=== PATIENT | male | born 1940 | race Hispanic/Latino ===

== ENCOUNTER 2020-02-11 14:07 | Inpatient (IN) | payer SELFPAY ==
[~2020-02-11 14:07] MED LIST: Iopamidol-370 76% 500 ML 1 ML ONE
[2020-02-11] MEDS ORDERED: Acetaminophen 500 MG TAB ONE (14:36)
[2020-02-11 15:05] LABS: #Lymphocytes 1.8 thou/uL (1.20-3.40); #Neutrophils 4.1 thou/uL (1.40-6.50); %Basophils 0.6 % (0.0-1.0); %Eosinophils 0.1 % (0.0-10.0); %Lymphocytes 25.6 % (21.0-51.0); %Monocytes 13.8 % (0.0-10.0); Hemoglobin 14.6 g/dL (14.0-18.0); Mean Corpuscular HGB CONC 33.6 g/dL (32.0-36.0); Mean Corpuscular Hemoglobin 32.4 pg (27.0-31.0); Mean Corpuscular Volume 96.5 fL (78.0-98.0); Mean Platelet Volume 8.9 fL (7.4-10.4); Platelet Count 132 thou/uL (130-400); Red Blood Cell (RBC) Count 4.51 mill/uL (4.70-6.10); White Blood Cell (WBC) Count 6.9 thou/uL (4.8-10.8)
[2020-02-11 15:29] LABS: ALT (SGPT) 13 U/L (8-55); AST (SGOT) 35 U/L (5-34); Albumin 3.9 g/dL (3.4-4.8); Alkaline Phosphatase 67 U/L (40-110); Anion Gap 14 mmol/L (10-20); BUN (Urea Nitrogen) 17 mg/dL (8.4-25.7); Bilirubin, Total 0.6 mg/dL (0.2-1.2); Calc. Creatinine Clearance 0 mL/min (70-130); Calcium 8.9 mg/dL (7.8-10.44); Carbon Dioxide 26 mmol/L (23-31); Chloride 100 mmol/L (98-107); Globulin 4.1 g/dL (2.4-3.5); Glucose 99 mg/dL (83-110); Sodium 136 mmol/L (136-145)
[2020-02-11 15:48] LABS: CKMB 1.2 ng/mL (0-6.6)
[2020-02-11 15:59] LABS: SARS-CoV-2 NAA Rapid Test Not Detected (NotDetected)
--- NOTE | 2020-02-11 16:04 | RAD ---
PORTABLE CHEST: 02/11/20 INDICATIONS: Dyspnea. Exposure to COVID. Hazy ground glass type infiltrate in the right mid lung. There is hazy infiltrate in the left mid and lower lung. Cardiomegaly and mild vascular engorgement. Small effusions cannot be excluded. IMPRESSION: Hazy bilateral infiltrates consistent with COVID pneumonia. POS: AGW
--- NOTE | 2020-02-11 16:09 | CT ---
CTA Angio Chest W WO Con History: Dyspnea Comparison: Chest radiograph same day Findings: CT angiogram chest performed after the intravenous administration of contrast. 3-D renderin g provided. No proximal segmental pulmonary arterial filling defect. No pericardial effusion. Large hepatic cyst. No aneurysmal aortic dilatation. Extensive left lower lobe and some right upper lobe perihilar periph eral opacities. Few groundglass opacities right lower lobe. No pneumothorax. Impression: 1. No pulmonary embolism. 2. Commonly reported imaging findings of Covid-19 pneumonia.
[2020-02-11] MEDS ORDERED: Ondansetron ODT 4 MG TAB PO PRN (16:30)
[2020-02-11] MEDS ORDERED: Senokot S 8.6-50 MG TAB PO PRN (16:30)
[2020-02-11] MEDS ORDERED: Azithromycin 500 MG VIAL ONE (16:41)
[2020-02-11] MEDS ORDERED: Aspirin 325 MG TAB ONE (16:41)
[2020-02-11] MEDS ORDERED: cefTRIAXone\\ROCEPHIN 1 GM VIAL ONE (16:41)
--- NOTE | 2020-02-11 19:53 | HP ---
CHIEF COMPLAINT: Cough. HISTORY OF PRESENT ILLNESS: The patient is an 79-year-old male, who initially presented to the hospital with complaints of coughing going on for the past week. The patient states that his has COVID and he has been living with her. He denies any fevers or any chills, any chest tightness or palpitations. We did use a staff interpreter to ask the patient questions. The patient states that he has never been to a doctor in his entire life. PAST MEDICAL HISTORY: Denies. PAST SURGICAL HISTORY: Denies. SOCIAL HISTORY: He was a former smoker. Currently, does not smoke. No alcohol use. No drug use. He is a full code. Lives with his . REVIEW OF SYSTEMS: All negative except for the ones mentioned in the HPI. FAMILY HISTORY: No history of heart disease or stroke. PHYSICAL EXAMINATION: VITAL SIGNS: Temperature 98.7, respirations 16, O2 saturation 100% on room air, blood pressure 116/57, heart rate of 33. GENERAL: He is awake, alert, and oriented x3. Does not appear in distress. CV: S1, S2 present. Sinus marta. LUNGS: Clear to auscultation. No rhonchi or wheezes noted. ABDOMEN: Soft and nontender. Bowel sounds are present x2. EXTREMITIES: No edema. Pedal pulses are present x2. NEUROVASCULAR: There were no focal deficits noted. SKIN: No cuts or lesions. No bruises noted. LABORATORY RESULTS: His CRP is 16, ferritin is 1253. X-ray showed haziness bilaterally. His CTA, no PE, but COVID appearance. His rapid COVID test was negative. Troponin was elevated at 0.088. His sodium was 136, potassium of 4.0, BNP of 159, BUN of 17, creatinine of 1.11. His WBCs of 6.9, hemoglobin of 14.6, hematocrit of 43.6, his platelets were 132. ASSESSMENT AND PLAN: THE patient is a very pleasant 79-year-old male, who presents to the hospital with cough. 1. Bradycardia. The patient was noted to be significantly bradycardic. He is currently asymptomatic. However, his EKG is concerning for possible third-degree block. I have discussed the case with Cardiology. We will put him on the pacer pads just in case if he Marta's down significantly and becomes symptomatic. Currently, he is doing well. It is unclear if this patient has underlying bradycardia, which is worsened with COVID or if this is something new onset brought on by COVID. His COVID rapid test was negative. However, I have a high suspicion that this is most likely COVID. I would repeat the test. I will hold off on any sort of steroids since he is not hypoxic. 2. Cough, most likely secondary to COVID pneumonia. I will not give him any antibiotics. He does not have leukocytosis. He is not hypoxic. We will just put him on DVT prophylaxis and we will continue to monitor this patient. 3. Elevated troponins, most likely secondary to demand related from his bradycardia. It is type 2. We will continue to monitor and trend those. Cardiology has been consulted. 4. DVT prophylaxis. The patient is on Lovenox. Job ID: [id number]
[2020-02-11] MEDS ORDERED: Atropine Sulfate 1 mg/1 ml Vial IVP PRN (21:02)
[2020-02-11 21:13] VITALS: BMI 29.6
[2020-02-11] MEDS: Famotidine 20 MG TAB PO SCH (21:32)
[2020-02-11] MEDS ORDERED: Atropine Sulfate 1 mg/1 ml Vial IVP SCH (22:00)
[2020-02-12] MEDS: Acetaminophen 325 MG TAB PO PRN ×2 (04:16→12:13)
[2020-02-12 06:48] LABS: Anion Gap 14 mmol/L (10-20); BUN (Urea Nitrogen) 14 mg/dL (8.4-25.7); Calc. Creatinine Clearance 85 mL/min (70-130); Carbon Dioxide 22 mmol/L (23-31); Chloride 104 mmol/L (98-107); Glucose 88 mg/dL (83-110); Potassium 3.6 mmol/L (3.5-5.1); Sodium 136 mmol/L (136-145)
[2020-02-12 08:52] LABS: #Monocytes 0.6 thou/uL (0.11-0.59); #Neutrophils 3.4 thou/uL (1.40-6.50); %Basophils 0.1 % (0.0-1.0); %Eosinophils 0.2 % (0.0-10.0); %Lymphocytes 19.6 % (21.0-51.0); %Monocytes 11.5 % (0.0-10.0); %Neutrophils 68.6 % (42.0-75.0); Hemoglobin 12.4 g/dL (14.0-18.0); Mean Corpuscular HGB CONC 33.5 g/dL (32.0-36.0); Mean Corpuscular Hemoglobin 32.2 pg (27.0-31.0); Mean Corpuscular Volume 96.1 fL (78.0-98.0); Red Blood Cell (RBC) Count 3.85 mill/uL (4.70-6.10)
[2020-02-12] MEDS: Famotidine 20 MG TAB PO SCH ×2 (09:07→19:33)
[2020-02-12] MEDS: Enoxaparin Sodium 40 MG/0.4 ML SYRINGE SC SCH (09:07)
[2020-02-12 09:14] LABS: Mean Platelet Volume 8.9 fL (7.4-10.4); Platelet Count 118 thou/uL (130-400); Platelet Morphology Comment Appears Decreased; RBC Morphology Normal
--- NOTE | 2020-02-12 09:28 | PDOC.HOSPP ---
- Subjective Encounter Date: 02/12/20 Encounter Time: 09:26 Subjective: no sob, mild cough - Objective Vital Signs & Weight: Vital Signs (12 hours) Temp Pulse Resp BP Pulse Ox 02/12/20 04:46 99.8 F H 02/12/20 04:16 101.6 F H 02/12/20 04:10 101.6 F H 69 20 133/63 95 02/11/20 23:14 98.4 F Weight Weight 183 lb 9.6 oz Result Diagrams: 02/12/20 05:35 02/12/20 05:35 Hospitalist ROS - Medication Medications: Active Medications Generic Name Dose Route Start Last Admin Trade Name Freq PRN Reason Stop Dose Admin Acetaminophen 650 mg 02/11/20 16:30 02/12/20 04:16 Acetaminophen 325 Mg Tab PO 650 mg Q6H PRN Administration Headache/Fever/Mild Pain (1-3) Atropine Sulfate 0.5 mg 02/11/20 21:02 02/11/20 21:31 Atropine Sulfate 1 Mg/1 Ml Vial IVP 02/12/20 21:03 0.5 mg ONE PRN Administration bradycardia Enoxaparin Sodium 40 mg 02/12/20 09:00 02/12/20 09:07 Enoxaparin Sodium 40 Mg/0.4 Ml Syringe SC 40 mg 0900 LYNETTE Administration Famotidine 20 mg 02/11/20 21:00 02/12/20 09:07 Famotidine 20 Mg Tab PO 20 mg BID LYNETTE Administration - Exam Neck: no JVD Heart: RRR, no murmur Respiratory: CTAB Gastrointestinal: soft, normal bowel sounds Extremities: no edema Hosp A/P (1) Pneumonia due to COVID-19 virus Code(s): U07.1 - COVID-19; J12.89 - OTHER VIRAL PNEUMONIA Status: Acute (2) Complete heart block Code(s): I44.2 - ATRIOVENTRICULAR BLOCK, COMPLETE Status: Acute - Plan SARS neg but OW consistent with COVID PNA heart block appears chronic with no syncope , ET TX- po zithromax, decadron, DDC today ?
--- NOTE | 2020-02-12 09:32 | CON ---
DATE OF CONSULTATION: HISTORY OF PRESENT ILLNESS: Will Hodge is an 79-year-old male, Setswana speaking only, and translation is performed by one of the RNs on the floor. His is at home sick with COVID and he developed a cough, came to the emergency room for further evaluation. He denies any shortness of breath. Chest x-ray and chest CT findings were consistent with COVID; however, his nasal swab was negative for COVID. He was noted to be bradycardic and has been found to be in complete heart block. He denies ever having any syncopal episode, lightheadedness, or dizziness. His energy level is good and he can do the things that he wants to do from an energy standpoint. He denies ever having any chest pain, shortness of breath, or peripheral edema. PAST MEDICAL HISTORY: Essentially none. MEDICATIONS: None. ALLERGIES: NONE. SOCIAL HISTORY: He smoked in the past. He does not drink. FAMILY HISTORY: Negative for coronary artery disease. REVIEW OF SYSTEMS: Unremarkable. PHYSICAL EXAMINATION: VITAL SIGNS: Blood pressure 133/63 pulse 35 HEENT: PERRL. NECK: Supple. CHEST: Clear. CARDIAC: S1 and S2 were normal. There was no S3, S4, or murmurs. The patient is bradycardic. ABDOMEN: Normal bowel sounds without tenderness or organomegaly. EXTREMITIES: Reveal no clubbing, cyanosis, or edema. NEUROLOGICAL: Grossly intact. SKIN: Warm and dry. LABORATORY DATA: EKG revealed normal sinus rhythm with complete heart block with ventricular escape rhythm of 45 per minute. Chest x-ray reveals hazy bilateral infiltrates consistent with COVID pneumonia. Chest CT shows the same findings. CBC is unremarkable. D-dimer 1.95. Sodium 136, potassium 3.6, chloride 104, carbon dioxide 22, BUN 14, creatinine 0.82. Ferritin 1253.16. Troponin I 0.088. BNP 159.3. Influenza A, influenza B, and COVID were all negative. IMPRESSION: 1. Complete heart block. He is asymptomatic with this and I imagine he is in complete heart block for some time. 2. Probable COVID pneumonia, although, his nasal swab is negative for COVID. He was running a low-grade temperature of 101.6 and has chest x-ray and chest CT findings consistent with COVID pneumonia. His only symptom is a cough. He denies any shortness of breath. RECOMMENDATIONS: Mr. Hodge appears to be asymptomatic in regard to his complete heart block and I feel this probably is old finding. He apparently has never seen a physician before and so no further information is available regarding previous evaluations. At the present time since he is asymptomatic, I do not feel any further evaluation or treatment is indicated. I did discuss with him that consideration eventually should be given to pacemaker placement. However, he stated that he does not seem to have any problems with this and in general was not enthusiastic about pursuing pacemaker placement. Further discussions in regard to this will be held when he is recovered from his COVID pneumonia. Job ID: [id number] MTDD
[2020-02-12] MEDS ORDERED: Azithromycin 250 MG TAB PO SCH (09:45)
[2020-02-12] MEDS ORDERED: Dexamethasone 4 MG TAB PO SCH (09:45)
--- NOTE | 2020-02-12 16:33 | PDOC.BPN ---
- Brief Progress Note Encounter Date: 02/12/20 Encounter Time: 16:31 3.8 second pause. short burst AIVR. asymptomatic. continue to monitor. revisit with cardiology
[2020-02-12] MEDS ORDERED: FLU VACC QS2020-21(65YR UP)/PF 240 MCG/0.7 ML SYRINGE IM ONE (21:00)
[2020-02-12] MEDS: Benzonatate 100 MG CAP PO PRN (21:11)
[2020-02-13] MEDS: Acetaminophen 325 MG TAB PO PRN (03:44)
[2020-02-13] MEDS: Benzonatate 100 MG CAP PO PRN ×2 (03:44→09:37)
[2020-02-13] MEDS ORDERED: Dexamethasone 4 MG TAB PO SCH (08:00)
[2020-02-13] MEDS ORDERED: Azithromycin 250 MG TAB PO SCH (09:00)
[2020-02-13] MEDS: Enoxaparin Sodium 40 MG/0.4 ML SYRINGE SC SCH (09:37)
[2020-02-13] MEDS: Famotidine 20 MG TAB PO SCH (09:37)
[2020-02-13 13:04] VITALS: BP 135/65; TEMP 99.3
--- NOTE | 2020-02-15 14:45 | DIS ---
DATE OF ADMISSION: 02/11/2020 DATE OF DISCHARGE: 02/13/2020 DISPOSITION: Discharged to home. PRIMARY CARE PHYSICIAN: No PCP. FINAL DIAGNOSES: Acute COVID respiratory disease, bradycardia, atrioventricular block, complete. DISCHARGE MEDICINES: 1. Zithromax 250 mg p.o. x7 days. 2. Decadron 6 mg p.o. x7 days. CODE STATUS: Full. PENDING AT TIME OF DISCHARGE: Nothing. DIET: As tolerated. CONSULTATIONS: Dr. Rolf No, Cardiology. HOSPITAL COURSE: The patient was admitted through [facility] with a diagnosis of COVID respiratory disease. He was noted to be in complete heart block with pulses in the 20. His chest x-ray showed some mild patchy infiltrates. He also had a CT of the thorax. No pulmonary embolus, infiltrates consistent with viral pneumonia. CBC was unremarkable. His SARS-COVID2 was not detected; however, his C-reactive protein was 16. His ferritin was 1253. His D-dimer was 1.95. His presentation, physical exam, and the fact that his has COVID makes the diagnosis of COVID pneumonia. Despite the negative SARS test, everything else is consistent. His chest exam revealed good breath sounds with no rales. Today, he feels well, desirous of going home. Dr. No in his consultation suggested that this patient had never seen a doctor before in his life, he most likely had long-standing complete heart block. He has no history of dizziness, falls, etc. He did not recommend pacemaker or further testing at this time. The patient is being discharged. He has been told he needs to find a doctor for follow up, and we will arrange follow up with Dr. No in the future for the complete heart block. Job ID: [id number]
== END 2020-02-13 15:00 | disposition home or self-care (01) | DRG 177 ==
LOC: ERS 14:07 → 2SW 17:06
PROVIDERS: ADMIT Internal Medicine; ATTEND Internal Medicine
PROC: 8E0ZXY6 Isolation (ICD-10-PCS; principal; 2020-02-11)
DX: U07.1 COVID-19 (principal); I21.A1 Myocardial infarction type 2; J12.89 Other viral pneumonia; I44.2 Atrioventricular block, complete; R00.1 Bradycardia, unspecified; Z87.891 Personal history of nicotine dependence
CPT/HCPCS: 0240U; 36415; 71045; 71275; 80048; 80053; 82553; 82728; 83880; 84484; 85025; 85379; 86140; 87040; 93005; J0456; J0461; J0696; J1650; J8540; Q9967